=== PATIENT | female | born 1965 | race Caucasian/White ===

== ENCOUNTER 2016-06-24 01:38 | Emergency (ER) | payer MEDICAID, OTHER ==
[~2016-06-24] VITALS: Ht 154.9 cm; Wt 85.0 kg
[~2016-06-24 01:38] MED LIST: ATOR20TA15 PO; DEXE15CA PO; FURO20TA PO; HYDR25TA5 PO; METF500T4 PO; MOME17I EACH NARE
[2016-06-24 01:39] VITALS: BP 245/120; PULSE 112; RESP 24; TEMP 98.6; O2SAT 98
[2016-06-24 02:04] VITALS: BP 177/96; PULSE 99; RESP 18; O2SAT 100
[2016-06-24] MEDS ORDERED: BLOOD PRESSURE (02:04)
[2016-06-24] MEDS ORDERED: DEXE15CA PO (02:04)
[2016-06-24 02:11] VITALS: RESP 18; O2SAT 96
[2016-06-24] MEDS ORDERED: ONDANSETRON HCL 4 MG/2 ML VIAL IV ONE (02:15)
[2016-06-24] MEDS ORDERED: HYDROmorphone HCL PF 1 MG/ML VIAL IV PUSH ONE (02:15)
[2016-06-24 02:33] LABS: AUTOMATED NEUTROPHIL # 4.4 TH/MM3 (1.8-7.7); BASOPHIL % 0.5 % (0.0-2.0); EOSINOPHIL # 0.3 TH/MM3 (0-0.4); EOSINOPHIL % 3.1 % (0.0-4.0); HEMATOCRIT 38.7 % (35.0-46.0); HEMO FLAGS DIFF FINAL; LYMPHOCYTE # 3.6 TH/MM3 (1.0-4.8); MEAN CELL VOLUME 93.6 FL (80.0-100.0); MEAN CORPUSCULAR HEMOGLOBIN 32.9 PG (27.0-34.0); MEAN CORPUSCULAR HGB CONC 35.2 % (32.0-36.0); MONO % 4.9 % (0.0-8.0); NEUT % 50.5 % (16.0-70.0); PLATELET COUNT 289 TH/MM3 (150-450); RED BLOOD COUNT 4.13 MIL/MM3 (4.00-5.30); RED CELL DISTRIBUTION WIDTH 11.7 % (11.6-17.2); WHITE BLOOD COUNT 8.7 TH/MM3 (4.0-11.0)
[2016-06-24 02:37] LABS: BLOOD, URINE NEG (NEG); COMMENT (UR) CULT NOT INDICATED; CULTURE IF INDICATED CULT NOT INDICATED; GLUCOSE,URINE NEG (NEG); KETONE, URINE NEG (NEG); MUCUS URINE FEW /lpf (OCC); NITRITE,URINE NEG (NEG); SQUAMOUS EPITHELIAL CELL URINE 6 /hpf (0-5); URINE COLOR YELLOW (YELLW/STRAW)
[2016-06-24 02:44] LABS: APTT (PATIENT) 25.9 SEC (24.3-30.1); INTERNATIONAL NORMALIZED RATIO 0.9 RATIO; PROTHROMBIN TIME - PATIENT 9.7 SEC (9.8-11.6)
--- NOTE | 2016-06-24 02:47 | RADRPT ---
EXAM DATE/TIME: 06/24/2016 02:39 [facility] COMPARISON: No previous studies available for comparison. INDICATIONS : Right sided chest pain MEDICAL HISTORY : None. SURGICAL HISTORY : None. ENCOUNTER: Initial ACUITY: 1 day PAIN SCORE: 10/10 LOCATION: Right chest FINDINGS: A single view of the chest demonstrates the lungs to be symmetrically aerated without evidence of mas s, infiltrate or effusion. The cardiomediastinal contours are unremarkable. Osseous structures are intact. CONCLUSION: No acute disease. Santiago Jones MD on June 24, 2016 at 2:46 Board Certified Radiologist. This report was verified electronically.
[2016-06-24] MEDS ORDERED: PROCHLORPERAZINE INJ 10 MG/2 ML VIAL IVS ONE (03:15)
[2016-06-24 03:22] LABS: ALKALINE PHOSPHATASE 68 U/L (45-117); ALT (GPT) 30 U/L (10-53); ANION GAP 6 MEQ/L (5-15); AST (GOT) 26 U/L (15-37); BLOOD UREA NITROGEN 11 MG/DL (7-18); CHLORIDE 105 MEQ/L (98-107); CREATINE KINASE 202 U/L (26-192); GLOMERULAR FILTRATION RATE 92 ML/MIN (>89); MAGNESIUM 1.8 MG/DL (1.5-2.5); SODIUM (NA) 140 MEQ/L (136-145); TOTAL BILIRUBIN ADULT 0.2 MG/DL (0.2-1.0)
--- NOTE | 2016-06-24 03:22 | PD ---
HPI Chief Complaint: Abdominal Pain Time Seen by Provider: 02:05 Travel History International Travel<30 days: No Contact w/Intl Traveler<30days: No Traveled to known affect area: No History of Present Illness HPI The patient is a 51 year old female who presents to the [facility] emergency department with a history of abdominal pain in the left upper quadrant of the abdomen that radiates to the left flank that began a week ago. She reports that it has been constant although it has gradually worsened with time. She reports that she went to see her primary care physician about it and had laboratory studies done, however she has not heard the results. She was also instructed to have a CT scan of the abdomen and pelvis done as an outpatient tomorrow. The patient reports that the pain became too severe, that she came to the emergency department. She was told to take ibuprofen as needed for pain which she reports has not been helping. She reports that she's had nausea but no vomiting. She denies having any diarrhea. Her last bowel movement was 2 days ago. She reports that she normally moves her bowels daily. She denies ever having a colonoscopy previously. She denies ever having a pain like this previously. She denies any dysuria, hematuria, urinary urgency, or frequency. The patient denies any recent fevers, cough, congestion, neck pain, chest pain, shortness of breath, or neurologic symptoms. [facility] Past Medical History Narrative Medical The patient's past medical history is significant for attention deficit hyperactivity disorder, hypertension, tobacco abuse. ADHD: Yes Cardiovascular Problems: Yes (HTN) Hypertension: Yes Tetanus Vaccination: Unknown Influenza Vaccination: No ?: Not Tubal Ligation: Yes Past Surgical History Narrative Surgical The patient's past surgical history is significant for an appendectomy with subsequent wound infection treated with a wound VAC correctly 5-6 years ago, cholecystectomy, prior C-sections. Appendectomy: Yes Section: Yes (X2) Cholecystectomy: Yes Social History Alcohol Use: No Tobacco Use: Yes (1 PPD) Substance Use: No Allergies-Medications (Allergen,Severity, Reaction): Coded Allergies: Aspirin (Verified Allergy, Severe, ABDOMINAL PAIN, 06/24/16) Codeine (Verified Allergy, Severe, Rash, 06/24/16) E-Mycin (Verified Allergy, Severe, N/V, 06/24/16) Lortab (Verified Allergy, Severe, Itching, 06/24/16) Morphine (Verified Allergy, Severe, 06/24/16) Percocet (Verified Allergy, Intermediate, ITCHY SKIN AND VOMIT, 06/24/16) Sulfa (Verified Adverse Reaction, Severe, Fever, 06/24/16) Suprax (Verified Adverse Reaction, Severe, Rash, 06/24/16) Comments The patient reports that the Lortab allergy is not true. Reported Meds & Prescriptions Reported Meds & Active Scripts Active Zofran Odt (Ondansetron Odt) 4 Mg Tab 4 Mg SL Q6HR PRN Prevacid (Lansoprazole) 30 Mg Capdr 30 Mg PO DAILY Lortab (Hydrocodone-Acetaminophen) 5-325 Mg Tab 1 Tab PO Q6H PRN Reported [Blood Pressure ] Dexedrine (Dextroamphetamine Sulfate) 15 Mg Cap 15 Mg PO DAILY Furosemide 20 Mg Tab 20 Mg PO DAILY Review of Systems Except as stated in HPI: all other systems reviewed are Neg General / Constitutional: No: Fever Eyes: No: Visual changes HENT: No: Headaches Cardiovascular: No: Chest Pain or Discomfort Respiratory: No: Shortness of Breath Gastrointestinal: Positive: Nausea, Abdominal Pain, Constipation, Changes in Bowel Habits, No: Vomiting, Diarrhea, Hematemesis, Hematochezia, Indigestion, Loss of Appetite Genitourinary: No: Dysuria Musculoskeletal: No: Pain Skin: No Rash Neurologic: No: Weakness Psychiatric: No: Depression Endocrine: No: Polydipsia Hematologic/Lymphatic: No: Easy Bruising Physical Exam Narrative General: The patient is a well-developed well-nourished female in no acute distress. Head and Neck exam: Head is normocephalic atraumatic. Eyes: EOMI, pupils are equal round and reactive to light. Nose: Midline septum with pink mucous membranes Mouth: Dentition unremarkable. Moist mucus membranes. Posterior oropharynx is not erythematous. No tonsillar hypertrophy. Uvula midline. Airway patent. Neck: No palpable lymphadenopathy. No nuchal rigidity. No thyromegaly. Cardiovascular: Regular rate and rhythm without murmurs, gallops, or rubs. No pulse deficit to the extremities. Lungs: Clear to auscultation bilaterally. No wheezes, rhonchi, or rales. Abdomen: Soft, with tenderness on palpation in the left upper and left lower quadrant of the abdomen, no tenderness on palpation of the midepigastric area and right upper or lower quadrant. No guarding, rebound, or rigidity. Negative Roseau sign. No tenderness on palpation of McBurney's point. Normal bowel sounds are audible. Extremities: No clubbing, cyanosis, or edema. 2+ pulses in all 4 extremities. No calf tenderness on palpation. Back: No spinous process tenderness to palpation. Left-sided CVA tenderness on palpation. Neurologic Exam: Grossly nonfocal. Skin Exam: No rash noted. Intact skin that is warm and dry. Data Data Last Documented VS Vital Signs Date Time Temp Pulse Resp B/P Pulse Ox O2 Delivery O2 Flow Rate FiO2 06/24/16 02:11 18 96 Room Air 06/24/16 02:04 99 177/96 06/24/16 01:39 98.6 Orders Electrocardiogram (06/24/16 02:06) Complete Blood Count With Diff (06/24/16 02:06) Comprehensive Metabolic Panel (06/24/16 02:06) Creatine Kinase (Cpk) (06/24/16 02:06) Ckmb (Isoenzyme) Profile (06/24/16 02:06) Troponin I (06/24/16 02:06) B-Type Natriuretic Peptide (06/24/16 02:06) Prothrombin Time / Inr (Pt) (06/24/16 02:06) Act Partial Throm Time (Ptt) (06/24/16 02:06) C-Reactive Protein (Crp) (06/24/16 02:06) Urinalysis - C+S If Indicated (06/24/16 02:06) Magnesium (Mg) (06/24/16 02:06) Chest, Single Ap (06/24/16 02:06) Iv Access Insert/Monitor (06/24/16 02:06) Ecg Monitoring (06/24/16 02:06) Oximetry (06/24/16 02:06) Hydromorphone Pf Inj (Dilaudid Pf Inj) (06/24/16 02:15) Ondansetron Inj (Zofran Inj) (06/24/16 02:15) Ct Abd/Pel W Iv Contrast(Rout) (06/24/16 03:01) Prochlorperazine Inj (Compazine Inj) (06/24/16 03:15) CKMB (06/24/16 02:10) CKMB% (06/24/16 02:10) Iohexol 350 Inj (Omnipaque 350 Inj) (06/24/16 03:41) Lipase (06/24/16 04:20) Labs Laboratory Tests Test 06/24/16 06/24/16 02:10 02:15 White Blood Count 8.7 TH/MM3 Red Blood Count 4.13 MIL/MM3 Hemoglobin 13.6 GM/DL Hematocrit 38.7 % Mean Corpuscular Volume 93.6 FL Mean Corpuscular Hemoglobin 32.9 PG Mean Corpuscular Hemoglobin 35.2 % Concent Red Cell Distribution Width 11.7 % Platelet Count 289 TH/MM3 Mean Platelet Volume 7.7 FL Neutrophils (%) (Auto) 50.5 % Lymphocytes (%) (Auto) 41.0 % Monocytes (%) (Auto) 4.9 % Eosinophils (%) (Auto) 3.1 % Basophils (%) (Auto) 0.5 % Neutrophils # (Auto) 4.4 TH/MM3 Lymphocytes # (Auto) 3.6 TH/MM3 Monocytes # (Auto) 0.4 TH/MM3 Eosinophils # (Auto) 0.3 TH/MM3 Basophils # (Auto) 0.0 TH/MM3 CBC Comment DIFF FINAL Differential Comment Prothrombin Time 9.7 SEC Prothromb Time International 0.9 RATIO Ratio Activated Partial 25.9 SEC Thromboplast Time Sodium Level 140 MEQ/L Potassium Level 4.0 MEQ/L Chloride Level 105 MEQ/L Carbon Dioxide Level 29.0 MEQ/L Anion Gap 6 MEQ/L Blood Urea Nitrogen 11 MG/DL Creatinine 0.67 MG/DL Estimat Glomerular Filtration 92 ML/MIN Rate Random Glucose 124 MG/DL Calcium Level 9.0 MG/DL Magnesium Level 1.8 MG/DL Total Bilirubin 0.2 MG/DL Aspartate Amino Transf 26 U/L (AST/SGOT) Alanine Aminotransferase 30 U/L (ALT/SGPT) Alkaline Phosphatase 68 U/L Total Creatine Kinase 202 U/L Creatine Kinase MB 2.8 NG/ML Creatine Kinase MB % 1.4 % Troponin I LESS THAN 0.02 NG/ML C-Reactive Protein 0.58 MG/DL B-Type Natriuretic Peptide 17 PG/ML Total Protein 7.1 GM/DL Albumin 3.3 GM/DL Lipase 117 U/L Urine Color YELLOW Urine Turbidity HAZY Urine pH 6.0 Urine Specific [place] 1.029 Urine Protein TRACE mg/dL Urine Glucose (UA) NEG mg/dL Urine Ketones NEG mg/dL Urine Occult Blood NEG Urine Nitrite NEG Urine Bilirubin NEG Urine Urobilinogen LESS THAN 2.0 MG/DL Urine Leukocyte Esterase NEG Urine RBC 1 /hpf Urine WBC 1 /hpf Urine Squamous Epithelial 6 /hpf Cells Urine Mucus FEW /lpf Microscopic Urinalysis Comment CULT NOT INDICATED MDM Medical Decision Making Medical Screen Exam Complete: Yes Emergency Medical Condition: Yes Medical Record Reviewed: Yes Interpretation(s) Last Impressions Abdomen/Pelvis CT 06/24/16300 Signed Impressions: Service Date/Time: Friday, June 24, 2016 03:37 - CONCLUSION: Mild hepatic steatosis. No inflammatory changes are seen. Santiago Jones MD Chest X-Ray 06/24/16205 Signed Impressions: Service Date/Time: Friday, June 24, 2016 02:39 - CONCLUSION: No acute disease. Santiago Jones MD Differential Diagnosis Acute pancreatitis, versus peptic ulcer disease, versus diverticulitis, versus kidney stone, versus pyelonephritis, versus musculoskeletal strain Narrative Course During the course of the patients emergency department visit, the patients history, examination, and differential diagnosis were reviewed with the patient. The patient had IV access obtained and blood work sent for analysis. The patient was placed on a environmental monitoring technician with oximetry and blood pressure monitoring. An EKG was ordered. The patient's EKG shows a sinus rhythm of 81, right bundle branch block which the patient reports having a history of, T waves inverted in V1 and V2, no acute ST segment elevation. A CT scan of the abdomen and pelvis was ordered. The patient was provided hydromorphone 0.5 mg IV, normal saline IV fluids, Zofran 4 mg IV. The patient continued to have nausea and was given Compazine 5 mg IV. The patients laboratory studies were reviewed and remarkable for a CBC that is within normal limits, CMP is remarkable for a glucose of 124, CPK 202, MB percent 1.4, troponin I less than 0.02, C-reactive protein 0.58, BNP is 17 albumin 3.3, PT PTT unremarkable. Urinalysis shows hazy urine, otherwise no acute abnormality. Lipase within normal limits. Radiology studies were reviewed and remarkable for a Chest x-ray shows no acute abnormality. CT scan of the abdomen and pelvis shows mild hepatic steatosis, no inflammatory changes are seen. The patient initially arrived with an elevated blood pressure, however after her pain level was improved the patient's blood pressure went down to a systolic of 117. The patient is instructed to continue to follow-up with her primary care physician and consideration for referral to a GI specialist for colonoscopy and endoscopy. The patient was discharged home with a prescription for Zofran, Prevacid, Lortab. The patient is resting comfortably and feels better, is alert and in no distress. The patients results and examination findings were discussed with the patient. The repeat examination is unremarkable and benign. The history, exam, diagnostic testing, and current condition do not suggest any significant pathology to warrant further testing, continued ED treatment, admission, or surgical evaluation at this point. The vital signs have been stable. The patient does not have uncontrollable pain, intractable vomiting, or other significant symptoms. The patient's condition is stable and appropriate for discharge. The patient will pursue further outpatient evaluation with a primary care physician or other designated or consulting physician as indicated in the discharge instructions. The patient expressed understanding and was agreeable with this plan. Diagnosis Primary Impression: Abdominal pain Qualified Code: R10.32 - Left lower quadrant pain Additional Impression: Nausea Referrals: Primary Care Physician Patient Instructions: Abdominal Pain (ED), General Instructions Med/Other Pt SpecificInfo: Prescription(s) given Scripts Ondansetron Odt (Zofran Odt)4 Mg Tab4 Mg SL Q6HR PRN (Nausea/Vomiting) #7 TAB Ref 0 Prov:Anna Byrd MD 06/24/16 Lansoprazole (Prevacid)30 Mg Capdr30 Mg PO DAILY #14 CAP Ref 0 Prov:Anna Byrd MD 06/24/16 Hydrocodone-Acetaminophen (Lortab)5-325 Mg Tab1 Tab PO Q6H PRN (PAIN) #12 TAB Ref 0 Prov:Anna Byrd MD 06/24/16 Disposition: 01 DISCHARGE HOME Condition: Stable Anna Byrd MD Jun 24, 2016 03:22
[2016-06-24 03:40] LABS: CKMB 2.8 NG/ML (0.5-3.6)
[2016-06-24] MEDS ORDERED: IOHEXOL 350 MG/ML 10 ML VIAL (for RAD DIAG) IV ONE (03:41)
[2016-06-24 03:45] VITALS: BP 126/60; PULSE 96; RESP 18; O2SAT 94
--- NOTE | 2016-06-24 04:06 | RADRPT ---
EXAM DATE/TIME: 06/24/2016 03:37 [facility] COMPARISON: No previous studies available for comparison. INDICATIONS : Left sided abdominal pain, evaluate for diverticulitis. IV CONTRAST: 94 cc Omnipaque 350 (iohexol) IV ORAL CONTRAST: No oral contrast ingested. RADIATION DOSE: 14.79 CTDIvol (mGy) MEDICAL HISTORY : Cardiovascular disease. Hypertension. SURGICAL HISTORY : Appendectomy. Tubal ligation. section. ENCOUNTER: Initial ACUITY: 1 day PAIN SCALE: 10/10 LOCATION: Left abdomen TECHNIQUE: Volumetric scanning of the abdomen and pelvis was performed. Using automated exposure control and ad justment of the mA and/or kV according to patient size, radiation dose was kept as low as reasonably achievable to obtain optimal diagnostic quality images. FINDINGS: Mild hepatic steatosis. Common bile that measures 1.4 cm in AP dimension possibly related to a reserv oir effect. Spleen, pancreas, adrenal glands, bilateral kidneys are normal in appearance. Uterus and adnexal regions are unremarkable. Tiny fat containing umbilical hernia. Lung bases are clear. Osseous structures are intact. No free fluid or free air. CONCLUSION: Mild hepatic steatosis. No inflammatory changes are seen. Santiago Jones MD on June 24, 2016 at 4:00 Board Certified Radiologist. This report was verified electronically.
[2016-06-24] MEDS ORDERED: PREV30CA11 PO (04:23)
[2016-06-24] MEDS ORDERED: ZOFR4TAB3 SL (04:23)
[2016-06-24] MEDS ORDERED: HYDR-3533 PO (04:23)
[2016-06-24 05:17] VITALS: BP 117/56
--- NOTE | 2016-06-24 09:21 | EKG ---
Date Performed: 06/24/2016 Time Performed: 02:51:46 PTAGE: 51 years EKG: Sinus rhythm RIGHT BUNDLE BRANCH BLOCK ABNORMAL ECG PREVIOUS TRACING : 05/07/2015 12.11 DOCTOR: Roel Covarrubias Interpretating Date/Time 06/24/2016 09:19:02
[2016-06-25] MEDS ORDERED: HYDR-3583 PO (15:01)
[2016-06-25] MEDS ORDERED: ONDA4TAB7 SL (15:01)
[2016-06-25] MEDS ORDERED: OMEP20CA2 PO (15:01)
[2016-06-25] MEDS ORDERED: [UNRECOGNIZED DRUG - CODE] PO (15:04)
[2016-06-25] MEDS ORDERED: PERI8.6T PO (15:04)
[2016-06-25] MEDS ORDERED: ATEN25TA PO (15:22)
[2016-06-25] MEDS ORDERED: QUIN1TAB11 PO (15:22)
[2016-06-26] MEDS ORDERED: COLA100C3 PO (09:54)
[2016-06-26] MEDS ORDERED: MIRA33504 PO (10:31)
[2016-06-26] MEDS ORDERED: TRIA40P IM (14:53)
[2016-06-29] MEDS ORDERED: KETO60IN6 IM (13:37)
[2016-06-30] MEDS ORDERED: FURO20TA PO (13:51)
[2016-07-03] MEDS ORDERED: PANT20TA2 PO (10:55)
[2016-07-03] MEDS ORDERED: KETO60IN6 IM (10:55)
[2016-07-07] MEDS ORDERED: QUIN1TAB11 PO (15:17)
[2016-07-07] MEDS ORDERED: [UNRECOGNIZED DRUG - CODE] IV (15:37)
[2016-07-07] MEDS ORDERED: KETO60IN6 IM (15:46)
[2016-08-04] MEDS ORDERED: AZEL0.055 EACH NARE (16:08)
[2016-08-04] MEDS ORDERED: BACTOIN EACH NARE (16:08)
[2016-08-04] MEDS ORDERED: KETO60IN6 IM (16:08)
[2016-08-04] MEDS ORDERED: CLIN1CAP6 PO (16:08)
[2016-08-06] MEDS ORDERED: MOME17I EACH NARE (13:48)
[2016-08-12] MEDS ORDERED: FLUT50SP EACH NARE (16:51)
[2016-08-19] MEDS ORDERED: QUIN1TAB11 PO (08:35)
[2016-09-03] MEDS ORDERED: FLUT50SP EACH NARE (09:32)
== END 2016-06-24 05:18 | disposition home or self-care (01) ==
LOC: NEPE 01:38
DX: R10.32 Left lower quadrant pain (principal); R10.12 Left upper quadrant pain; R11.0 Nausea; R94.31 Abnormal electrocardiogram [ECG] [EKG]; I10 Essential (primary) hypertension; F17.200 Nicotine dependence, unspecified, uncomplicated; Z86.59 Personal history of other mental and behavioral disorders
CPT/HCPCS: 71010; 74177; 80053; 81001; 82550; 82552; 83690; 83735; 83880; 84484; 85025; 85610; 85730; 86140; 93005; 96374; 96375; 99284; J0780; J1170; J2405; Q9967

== ENCOUNTER 2017-01-21 23:05 | Emergency (ER) | payer MEDICAID ==
[~2017-01-21] VITALS: Ht 154.9 cm; Wt 83.0 kg
[~2017-01-21 23:05] MED LIST changes: +ATEN25TA PO; -ATOR20TA15 PO; +BLOOD PRESSURE; +FLUT50SP EACH NARE; -HYDR25TA5 PO; +IBUP800T23 PO; +KETO10 PO; -METF500T4 PO; -MOME17I EACH NARE; +OMEP20CA2 PO; +PANT20TA2 PO
[2017-01-21 23:07] VITALS: BP_SYST 148; PULSE 100; RESP 16; TEMP 98.8; O2SAT 96
[2017-01-22 00:09] VITALS: BP 145/92; PULSE 83; RESP 20; O2SAT 98
--- NOTE | 2017-01-22 00:33 | PD ---
HPI Chief Complaint: Respiratory Symptoms Time Seen by Provider: 00:32 Travel History International Travel<30 days: No Contact w/Intl Traveler<30days: No Traveled to known affect area: No History of Present Illness HPI Patient 51-year-old female presents emergency department for evaluation of cough and congestion. She went to an urgent care center a few days ago was prescribed Augmentin but states this doesn't work for and she usually needs amoxicillin. Patient states she has a history of recurrent bronchitis and is a smoker. She states that there is a leak in her roof and there is mold in her house. Denies any fever denies any chest pain, endorse a mild baseline shortness of breath. Is not on any oxygen at home. Duration is a week and a half. She's finished her antibiotics. PFSH Past Medical History ADHD: Yes Cardiovascular Problems: Yes (HTN) Diminished Hearing: No Hypertension: Yes Tetanus Vaccination: Unknown ?: Not Tubal Ligation: Yes Past Surgical History Appendectomy: Yes Section: Yes (X2) Cholecystectomy: Yes Social History Alcohol Use: No Tobacco Use: Yes (1 PPD) Substance Use: No Allergies-Medications (Allergen,Severity, Reaction): Coded Allergies: aspirin (Unverified Allergy, Severe, ABDOMINAL PAIN, 11/26/16) codeine (Unverified Allergy, Severe, Rash, 11/26/16) erythromycin base (Unverified Allergy, Severe, N/V, 11/26/16) hydrocodone (Unverified Allergy, Severe, Itching, 11/26/16) morphine (Unverified Allergy, Severe, 11/26/16) acetaminophen (Unverified Allergy, Intermediate, ITCHY SKIN AND VOMIT, ) oxycodone (Unverified Allergy, Intermediate, ITCHY SKIN AND VOMIT, 11/26/16 ) Sulfa (Sulfonamide Antibiotics) (Unverified Adverse Reaction, Severe, Fever, 11/26/16) cefixime (Unverified Adverse Reaction, Severe, Rash, 11/26/16) Reported Meds & Prescriptions Reported Meds & Active Scripts Active Proair Hfa 8.5 GM Inh (Albuterol Sulfate) 90 Mcg/Act Aer 2 Puff INH Q6H PRN 108 mcg/actuation Prednisone 20 Mg Tab 40 Mg PO DAILY 5 Days Ibuprofen 800 Mg Tab 800 Mg PO Q8H PRN Fluticasone Nasal [place] 50 Mcg/Act Naspr 50 Mcg EACH NARE BID 50 mcg/spray Furosemide 20 Mg Tab 20 Mg PO DAILY Ketorolac (Ketorolac Tromethamine) 10 Mg Tab 10 Mg PO Q6HR PRN Pantoprazole (Pantoprazole Sodium) 20 Mg Tab 20 Mg PO DAILY Atenolol 25 Mg Tab 25 Mg PO DAILY Omeprazole 20 Mg Cap 20 Mg PO DAILY Reported [Blood Pressure ] Dexedrine (Dextroamphetamine Sulfate) 15 Mg Cap 15 Mg PO DAILY Review of Systems Except as stated in HPI: all other systems reviewed are Neg Physical Exam Narrative GENERAL: Well-nourished, well-developed patient. In no obvious distress, sleeping soundly in a stretcher. SKIN: Focused skin assessment warm/dry. HEAD: Normocephalic. Atraumatic EYES: No scleral icterus. No injection or drainage. NECK: Supple, trachea midline. No JVD or lymphadenopathy. CARDIOVASCULAR: Regular rate and rhythm without murmurs, gallops, or rubs. RESPIRATORY: Breath sounds equal bilaterally. No accessory muscle use. No wheezes rales or rhonchi, normal work of breathing. GASTROINTESTINAL: Abdomen soft, non-tender, nondistended. MUSCULOSKELETAL: No cyanosis, or edema. BACK: Nontender without obvious deformity. No CVA tenderness. Data Data Last Documented VS Vital Signs Date Time Temp Pulse Resp B/P (MAP) Pulse Ox O2 Delivery O2 Flow Rate FiO2 01/22/17 02:19 01/22/17 00:10 20 98 Room Air 01/22/17 00:09 83 01/21/17 23:07 98.8 Orders Orders Chest, Pa & Lat (01/22/17 ) Albuterol-Ipratropium Neb (Duoneb Neb) (01/22/17 00:45) Ed Discharge Order (01/22/17 01:43) MDM Medical Decision Making Medical Screen Exam Complete: Yes Emergency Medical Condition: Yes Differential Diagnosis Bronchitis, pneumonia, asthma, COPD, chronic bronchitis. Narrative Course Patient roomed to emergency department, she was given duo neb, will be discharged on prednisone if chest x-ray negative. Discussed need follow-up her primary care physician in smoking cessation. Last 24 hours Impressions Chest X-Ray 01/22/17 0000 Signed Impressions: Service Date/Time: Wednesday, January 22, 2017 00:50 - CONCLUSION: No acute disease. Davy Mittal MD Diagnosis Primary Impression: Acute bronchitis Qualified Codes: J20.9 - Acute bronchitis, unspecified Med/Other Pt SpecificInfo: Prescription(s) given Scripts Albuterol 8.5 GM Inh (Proair Hfa 8.5 GM Inh) 90 Mcg/Act Aer 2 PUFF INH Q6H Y for SHORTNESS OF BREATH, #1 INHALER 1 Refill 108 mcg/actuation Prov: Blade Antony MD 01/22/17 Prednisone (Prednisone) 20 Mg Tab 40 MG PO DAILY for 5 Days, #10 TAB 0 Refills Prov: Blade Antony MD 01/22/17 Disposition: 01 DISCHARGE HOME Condition: Stable Blade Antony MD Jan 22, 2017 00:33
[2017-01-22] MEDS ORDERED: RESP: ALBUTEROL 2.5 MG/IPRATROPIUM 0.5 MG NEB (SCH) NEB ONE (00:45)
--- NOTE | 2017-01-22 01:08 | RADRPT ---
EXAM DATE/TIME: 01/22/2017 00:50 [facility] COMPARISON: No previous studies available for comparison. INDICATIONS : Shortness of breath MEDICAL HISTORY : Cardiovascular disease. Hypertension SURGICAL HISTORY : Appendectomy. Tubal ligation. section. ENCOUNTER: Initial ACUITY: 1 day PAIN SCORE: 5/10 LOCATION: Bilateral chest FINDINGS: PA and lateral views of the chest demonstrate the lungs to be symmetrically aerated without evidence of mass, infiltrate or effusion. The cardiomediastinal contours are unremarkable. Osseous structure s are intact. CONCLUSION: No acute disease. Davy Mittal MD on January 22, 2017 at 1:07 Board Certified Radiologist. This report was verified electronically.
[2017-01-22] MEDS ORDERED: ALBUAER3 INH (01:42)
[2017-01-22] MEDS ORDERED: PRED20 PO (01:42)
[2017-01-30] MEDS ORDERED: FLUT50SP EACH NARE (13:31)
[2017-02-04] MEDS ORDERED: MEDR4PAK PO (14:18)
== END 2017-01-22 02:15 | disposition home or self-care (01) ==
LOC: NEPE 23:05
DX: J20.9 Acute bronchitis, unspecified (principal); F17.200 Nicotine dependence, unspecified, uncomplicated; I10 Essential (primary) hypertension
CPT/HCPCS: 71020; 94664; 99284

== ENCOUNTER 2017-05-03 16:38 | Emergency (ER) | payer MEDICAID ==
[~2017-05-03] VITALS: Ht 156.2 cm; Wt 86.4 kg
[~2017-05-03 16:38] MED LIST changes: +ALBUAER3 INH; +AZEL0.055 EACH NARE; +IBUP1TAB7 PO; -IBUP800T23 PO; +MEDR4PAK PO; +PRED20 PO; +PRED50 PO; +TRIA.1%T TOPICAL; +VIST25CA PO; +ZAFI1TAB PO
[2017-05-03 16:40] VITALS: BP 132/74; PULSE 86; RESP 20; TEMP 98.5; O2SAT 100
[2017-05-03] MEDS ORDERED: MEDR4PAK PO (18:00)
[2017-05-03] MEDS ORDERED: CYCL10TA PO (18:00)
--- NOTE | 2017-05-03 18:00 | PD ---
HPI Chief Complaint: Back/ Neck Pain or Injury Time Seen by Provider: 17:33 Travel History International Travel<30 days: No Contact w/Intl Traveler<30days: No Traveled to known affect area: No History of Present Illness HPI This is a 51-year-old female here with low back pain radiating down into the right leg 3 days. Patient reports history of sciatica with similar pain in the past. She denies injury or trauma. No fever, incontinence, saddle anesthesia, paresthesia or weakness of the extremity. Pain is worse with movement and relieved with rest. Symptom severity is moderate. PFSH Past Medical History ADHD: Yes Cardiovascular Problems: Yes (HTN) Diminished Hearing: No Hypertension: Yes Tubal Ligation: Yes Past Surgical History Appendectomy: Yes Section: Yes (X2) Cholecystectomy: Yes Social History Alcohol Use: No Tobacco Use: Yes (1 PPD) Substance Use: No Allergies-Medications (Allergen,Severity, Reaction): Coded Allergies: aspirin (Unverified Allergy, Severe, ABDOMINAL PAIN, 03/01/17) codeine (Unverified Allergy, Severe, Rash, 03/01/17) erythromycin base (Unverified Allergy, Severe, N/V, 03/01/17) hydrocodone (Unverified Allergy, Severe, Itching, 03/01/17) morphine (Unverified Allergy, Severe, 03/01/17) acetaminophen (Unverified Allergy, Intermediate, ITCHY SKIN AND VOMIT, ) oxycodone (Unverified Allergy, Intermediate, ITCHY SKIN AND VOMIT, ) Sulfa (Sulfonamide Antibiotics) (Unverified Adverse Reaction, Severe, Fever, 03/01/17) cefixime (Unverified Adverse Reaction, Severe, Rash, 03/01/17) Reported Meds & Prescriptions Reported Meds & Active Scripts Active Flexeril (Cyclobenzaprine HCl) 10 Mg Tab 10 Mg PO TID Medrol Dosepak (Methylprednisolone) 4 Mg Dspk 4 Mg PO DIRECTED Per Pharmacist direction Proair Hfa 8.5 GM Inh (Albuterol Sulfate) 90 Mcg/Act Aer 2 Puff INH Q6H PRN 108 mcg/actuation Atenolol 25 Mg Tab 25 Mg PO DAILY Vistaril (Hydroxyzine Pamoate) 25 Mg Cap 25 Mg PO TID PRN Zafirlukast 10 Mg Tab 10 Mg PO BIDAC Azelastine Nasal [place] (Azelastine HCl) 0.15% [place] 2 [place] EACH NARE BID To each nostril. Fluticasone Nasal [place] 50 Mcg/Act Naspr 100 Mcg EACH NARE BID 50 mcg/spray Ibuprofen 800 Mg Tab 800 Mg PO Q8H PRN Furosemide 20 Mg Tab 20 Mg PO DAILY Omeprazole 20 Mg Cap 20 Mg PO DAILY Reported Dexedrine (Dextroamphetamine Sulfate) 15 Mg Cap 15 Mg PO DAILY Review of Systems Except as stated in HPI: all other systems reviewed are Neg Physical Exam Narrative GENERAL: Alert and well-appearing 51-year-old female SKIN: Warm and dry. No rash HEAD: Normocephalic. EYES: No injection or drainage. NECK: No JVD or lymphadenopathy. CARDIOVASCULAR: Regular rate and rhythm RESPIRATORY: Breath sounds equal bilaterally. No accessory muscle use. GASTROINTESTINAL: Abdomen soft, non-tender, nondistended. MUSCULOSKELETAL: No cyanosis, or edema. No muscle strength and sensation in lower extremity is. 2+ DTRs. She is able dorsiflex and plantarflex great toe. Ambulating without difficulty BACK: Mild tenderness over the right sacroiliac joint. No midline spine tenderness. Without obvious deformity. No CVA tenderness. Data Data Last Documented VS Vital Signs Date Time Temp Pulse Resp B/P (MAP) Pulse Ox O2 Delivery O2 Flow Rate FiO2 05/03/17 16:40 98.5 86 20 132/74 (93) 100 Room Air Orders Orders Ketorolac Inj (Toradol Inj) (05/03/17 18:15) Ed Discharge Order (05/03/17 18:01) [facility] Medical Decision Making Medical Screen Exam Complete: Yes Emergency Medical Condition: Yes Differential Diagnosis Sciatica, lumbar strain, SI joint pain, Narrative Course This is a 51-year-old female here with right-sided sciatica pain. She has a normal neurologic exam. She reports symptom improvement in the past steroids and a shot of Toradol. Diagnosis Primary Impression: Sciatica Qualified Codes: M54.31 - Sciatica, right side Referrals: Primary Care Physician Additional Instructions: Mentations as prescribed. Follow-up with her primary doctor. Scripts Methocarbamol (Robaxin) 500 Mg Tab 500 MG PO TID for Muscle Spasm, #12 TAB 0 Refills Prov: Kimberley Juares [employer] 05/03/17 Methylprednisolone Dosepak (Medrol Dosepak) 4 Mg Dspk 4 MG PO DIRECTED, #1 DSPK 0 Refills Per Pharmacist direction Prov: Kimberley Juares 05/03/17 Disposition: 01 DISCHARGE HOME Condition: Stable Kimberley Juares May 03, 2017 18:00
[2017-05-03] MEDS ORDERED: KETOROLAC TROMETHAMINE 60 MG/2 ML (IM) VIAL IM ONE (18:15)
[2017-05-03] MEDS ORDERED: ROBA500T PO (19:08)
== END 2017-05-03 19:33 | disposition home or self-care (01) ==
LOC: NEPK 16:38
DX: M54.31 Sciatica, right side (principal); F90.9 Attention-deficit hyperactivity disorder, unspecified type; I10 Essential (primary) hypertension; F17.210 Nicotine dependence, cigarettes, uncomplicated
CPT/HCPCS: 96372; 99284; J1885

== ENCOUNTER 2017-05-11 13:55 | Emergency (ER) | payer MEDICAID ==
[~2017-05-11 13:55] MED LIST changes: -BLOOD PRESSURE; -KETO10 PO; -PANT20TA2 PO; -PRED20 PO; -PRED50 PO; +ROBA500T PO; -TRIA.1%T TOPICAL
[2017-05-11 13:57] VITALS: BP 174/85; PULSE 100; RESP 22; TEMP 99.2; O2SAT 98
[2017-05-11] MEDS ORDERED: methylPREDNISolone SOD SUCC 125 MG/2 ML VIAL IM ONE (16:45)
[2017-05-11] MEDS ORDERED: KETOROLAC TROMETHAMINE 60 MG/2 ML (IM) VIAL IM ONE (16:45)
[2017-05-11] MEDS ORDERED: PRED20 PO (17:06)
[2017-05-11] MEDS ORDERED: KETO10 PO (17:06)
--- NOTE | 2017-05-11 17:11 | PD ---
HPI Chief Complaint: Back/ Neck Pain or Injury Time Seen by Provider: 16:31 Travel History International Travel<30 days: No Contact w/Intl Traveler<30days: No Traveled to known affect area: No History of Present Illness HPI 51-year-old female that presents to the ED for evaluation of lower back pain that radiates to both lower legs. Per patient she's had this on and off for some time. Per patient she was diagnosed with degenerative disc disease by her doctor and has been getting cortisone shots as well as Toradol with some relief. She was seen here about a week ago and was given Toradol but she states that Toradol does work for her but doesn't last long and she is here hoping to get a cortisone shot. She denies any chest pain or shortness of breath. No new injuries but states that she's been painting her house and likely aggravating her symptoms. She denies any numbness, tingling, weakness. No urinary or bowel movement issues. No sign of seizure-like symptoms. She followed for her doctor and try to get a appointment today to get a shot with him but they were both today so she decided to come here because of the pain. Per patient pain is 8 out of 10. She denies any falls or injuries. This is in ongoing for the past week and worsening today. She specifically asked for narcotic medications and states that she does not like them and does not want them. PFSH Past Medical History ADHD: Yes Arthritis: Yes Cardiovascular Problems: Yes (HTN) Diminished Hearing: No Hypertension: Yes Immunizations Current: Yes ?: Not Tubal Ligation: Yes Past Surgical History Appendectomy: Yes Section: Yes (X3) Cholecystectomy: Yes Social History Alcohol Use: No Tobacco Use: Yes (1 PPD) Substance Use: No Allergies-Medications (Allergen,Severity, Reaction): Coded Allergies: aspirin (Unverified Allergy, Severe, ABDOMINAL PAIN, 05/11/17) codeine (Unverified Allergy, Severe, Rash, 05/11/17) erythromycin base (Unverified Allergy, Severe, N/V, 05/11/17) hydrocodone (Unverified Allergy, Severe, Itching, 05/11/17) morphine (Unverified Allergy, Severe, 05/11/17) acetaminophen (Unverified Allergy, Intermediate, ITCHY SKIN AND VOMIT, 05/11) oxycodone (Unverified Allergy, Intermediate, ITCHY SKIN AND VOMIT, 05/11/17) Sulfa (Sulfonamide Antibiotics) (Unverified Adverse Reaction, Severe, Fever, 05/11/17) cefixime (Unverified Adverse Reaction, Severe, Rash, 05/11/17) Reported Meds & Prescriptions Reported Meds & Active Scripts Active Atenolol 25 Mg Tab 25 Mg PO DAILY Azelastine Nasal [place] (Azelastine HCl) 0.15% [place] 2 [place] EACH NARE BID To each nostril. Furosemide 20 Mg Tab 20 Mg PO DAILY Reported Dexedrine (Dextroamphetamine Sulfate) 15 Mg Cap 15 Mg PO DAILY Review of Systems Except as stated in HPI: all other systems reviewed are Neg Physical Exam Narrative GENERAL: SKIN: Warm and dry. HEAD: Atraumatic. Normocephalic. EYES: Pupils equal and round. No scleral icterus. No injection or drainage. ENT: No nasal bleeding or discharge. Mucous membranes pink and moist. NECK: Trachea midline. No JVD. CARDIOVASCULAR: Regular rate and rhythm. RESPIRATORY: No accessory muscle use. Clear to auscultation. Breath sounds equal bilaterally. GASTROINTESTINAL: Abdomen soft, non-tender, nondistended. Hepatic and splenic margins not palpable. MUSCULOSKELETAL: Extremities without clubbing, cyanosis, or edema. No obvious deformities. No lumbar, thoracic, cervical spine tenderness to palpation. Full range of motion of the upper and lower extremities bilaterally. 2+ pulses bilaterally. Some pain to producible with touch around the musculature of the lumbar musculature. Otherwise negative. No obvious deformity noted. NEUROLOGICAL: Awake and alert. No obvious cranial nerve deficits. Motor grossly within normal limits. Five out of 5 muscle strength in the arms and legs. Normal speech. PSYCHIATRIC: Appropriate mood and affect; insight and judgment normal. Data Data Last Documented VS Vital Signs Date Time Temp Pulse Resp B/P (MAP) Pulse Ox O2 Delivery O2 Flow Rate FiO2 05/11/17 13:57 99.2 100 22 174/85 (114) 98 Room Air Orders Orders Methylprednisolone So Succ Inj (Solumedr (05/11/17 16:45) Ketorolac Inj (Toradol Inj) (05/11/17 16:45) Ed Discharge Order (05/11/17 17:05) MDM Medical Decision Making Medical Screen Exam Complete: Yes Emergency Medical Condition: Yes Medical Record Reviewed: Yes Differential Diagnosis Back pain versus chronic back pain versus sciatica versus chronic low back pain versus normal exam Narrative Course 51-year-old female that presents to the ED for evaluation of lower back pain. Patient was properly examined and was found to have signs and symptoms consistent appears to be acute on chronic low back pain. No sign of acute medical distress. Patient has good pulses and is neurovascularly intact. No sign of have equinus syndrome or neurological deficit. Patient has been here before for similar. She really has a history of similar and states that cortisone help with her symptoms. At this time I think is reasonable to start her on a shot of Solu-Medrol and high dose of prednisone. Patient was given Toradol as well to give her relief quicker. Patient agrees with this plan. Patient was given prescription for this medications. Patient was told that if anything worsens she is to come back. I strongly encouraged her to avoid any strenuous activity including the painting that she is doing at her house until she is better as this will likely aggravate her symptoms. She agrees and understands plan. Ice or warm compresses. Continue medications given by her doctor. Follow up with PCP. See ED worsening symptoms. Diagnosis Primary Impression: Chronic low back pain Qualified Codes: M54.42 - Lumbago with sciatica, left side; M54.41 - Lumbago with sciatica, right side; G89.29 - Other chronic pain Patient Instructions: General Instructions Additional Instructions: Take medications as prescribed. Follow-up with your PCP. See ED worsening symptoms. Ice or warm compresses. Please avoid heavy lifting or bending for the next couple days until better. Med/Other Pt SpecificInfo: Prescription(s) given Scripts Prednisone (Prednisone) 20 Mg Tab 20 MG PO BID for 5 Days, #10 TAB 0 Refills Prov: Donna Low DO 05/11/17 Ketorolac (Ketorolac) 10 Mg Tab 10 MG PO Q6HR Y for PAIN, #20 TAB 0 Refills Prov: Donna Low DO 05/11/17 Disposition: 01 DISCHARGE HOME Condition: Stable Brenden Hyde May 11, 2017 17:11
== END 2017-05-11 17:25 | disposition home or self-care (01) ==
LOC: NEPK 13:55
DX: M54.41 Lumbago with sciatica, right side (principal); M54.42 Lumbago with sciatica, left side; G89.29 Other chronic pain; I10 Essential (primary) hypertension; F17.200 Nicotine dependence, unspecified, uncomplicated
CPT/HCPCS: 96372; 99283; J1885; J2930

== ENCOUNTER 2017-06-11 20:23 | Emergency (ER) | payer MEDICAID ==
[~2017-06-11 20:23] MED LIST changes: -ALBUAER3 INH; -FLUT50SP EACH NARE; -IBUP1TAB7 PO; +KETO10 PO; -MEDR4PAK PO; -OMEP20CA2 PO; +PRED20 PO; -ROBA500T PO; -VIST25CA PO; -ZAFI1TAB PO
[2017-06-11 22:14] VITALS: BP 117/69; PULSE 77; RESP 16; TEMP 98.3; O2SAT 97
[2017-06-11] MEDS ORDERED: DEXT15CA5 PO (23:50)
[2017-06-11] MEDS ORDERED: DICL75TA PO (23:52)
--- NOTE | 2017-06-11 23:52 | PD ---
HPI Chief Complaint: Pain: Acute or Chronic Time Seen by Provider: 23:44 Travel History International Travel<30 days: No Contact w/Intl Traveler<30days: No Traveled to known affect area: No History of Present Illness HPI 52-year-old female presents for evaluation of right-sided lower back pain that radiates on the right leg. This is a chronic issue that has been ongoing for many years. She is requesting a Toradol injection which has helped in the past. The pain is a sharp shooting pain which is worse with movement. She denies any acute injury. Denies bowel or bladder incontinence, saddle anesthesia, abdominal pain, focal weakness. No other complaints. PFSH Past Medical History ADHD: Yes Arthritis: Yes Cardiovascular Problems: Yes (HTN) Diminished Hearing: No Hypertension: Yes Immunizations Current: Yes ?: Not Tubal Ligation: Yes Past Surgical History Appendectomy: Yes Section: Yes (X3) Cholecystectomy: Yes Social History Alcohol Use: No Tobacco Use: Yes (1 PPD) Substance Use: No Allergies-Medications (Allergen,Severity, Reaction): Coded Allergies: aspirin (Unverified Allergy, Severe, ABDOMINAL PAIN, 06/11/17) codeine (Unverified Allergy, Severe, Rash, 06/11/17) erythromycin base (Unverified Allergy, Severe, N/V, 06/11/17) hydrocodone (Unverified Allergy, Severe, Itching, 06/11/17) morphine (Unverified Allergy, Severe, 06/11/17) acetaminophen (Unverified Allergy, Intermediate, ITCHY SKIN AND VOMIT, 06/11) oxycodone (Unverified Allergy, Intermediate, ITCHY SKIN AND VOMIT, 06/11/17) Sulfa (Sulfonamide Antibiotics) (Unverified Adverse Reaction, Severe, Fever, 06/11/17) cefixime (Unverified Adverse Reaction, Severe, Rash, 06/11/17) Reported Meds & Prescriptions Reported Meds & Active Scripts Active Diclofenac Sodium DR (Diclofenac Sodium) 75 Mg Tabdr 75 Mg PO BID 7 Days Atenolol 25 Mg Tab 25 Mg PO DAILY Reported Dextroamphetamine (Dextroamphetamine Sulfate) 15 Mg Cap 15 Mg PO DAILY Review of Systems Except as stated in HPI: all other systems reviewed are Neg Physical Exam Narrative GENERAL: Well-developed well-nourished female no acute distress SKIN: Warm and dry. HEAD: Atraumatic. Normocephalic. EYES: Pupils equal and round. No scleral icterus. No injection or drainage. ENT: No nasal bleeding or discharge. Mucous membranes pink and moist. NECK: Trachea midline. No JVD. CARDIOVASCULAR: Regular rate and rhythm. No murmur appreciated. RESPIRATORY: No accessory muscle use. Clear to auscultation. Breath sounds equal bilaterally. GASTROINTESTINAL: Abdomen soft, non-tender, nondistended. Hepatic and splenic margins not palpable. MUSCULOSKELETAL: No obvious deformities. No clubbing. No cyanosis. No edema. Some tenderness to palpation to the right lumbosacral region. 5 out of 5 muscle strength in lower extremities. NEUROLOGICAL: Awake and alert. No obvious cranial nerve deficits. Motor grossly within normal limits. Normal speech. PSYCHIATRIC: Appropriate mood and affect; insight and judgment normal. Data Data Last Documented VS Vital Signs Date Time Temp Pulse Resp B/P (MAP) Pulse Ox O2 Delivery O2 Flow Rate FiO2 06/11/17 22:14 98.3 77 16 117/69 (85) 97 Orders Orders Ketorolac Inj (Toradol Inj) (06/12/17 00:00) [facility] Medical Decision Making Medical Screen Exam Complete: Yes Emergency Medical Condition: Yes Medical Record Reviewed: Yes Differential Diagnosis Herniated mucous pulposis, piriformis syndrome, muscle spasm, spinal stenosis, compression fracture Narrative Course The patient will be given an injection of Toradol here and discharged with a short course of diclofenac. Diagnosis Primary Impression: Lumbosacral radiculopathy Additional Instructions: Medication as needed. Take with meals. Follow-up with primary care physician. Med/Other Pt SpecificInfo: Prescription(s) given Scripts Diclofenac Sodium DR (Diclofenac Sodium DR) 75 Mg Tabdr 75 MG PO BID for 7 Days, #14 TAB 0 Refills Prov: Heladio Stephenson MD 06/11/17 Disposition: 01 DISCHARGE HOME Condition: Stable Davonte Haynes Jun 11, 2017 23:52
[2017-06-12] MEDS ORDERED: KETOROLAC TROMETHAMINE 60 MG/2 ML (IM) VIAL IM ONE
== END 2017-06-12 00:50 | disposition home or self-care (01) ==
LOC: NEPD 20:23
DX: M54.17 Radiculopathy, lumbosacral region (principal); I10 Essential (primary) hypertension; F17.200 Nicotine dependence, unspecified, uncomplicated
CPT/HCPCS: 96372; 99283; J1885

== ENCOUNTER 2017-07-16 11:29 | Emergency (ER) | payer MEDICAID ==
[~2017-07-16] VITALS: Ht 154.9 cm; Wt 91.0 kg
[~2017-07-16 11:29] MED LIST changes: -AZEL0.055 EACH NARE; -DEXE15CA PO; +DEXT15CA5 PO; +DICL75TA PO; -FURO20TA PO; -KETO10 PO; -PRED20 PO
[2017-07-16 11:32] VITALS: BP 126/68; PULSE 106; RESP 20; TEMP 99; O2SAT 98
[2017-07-16] MEDS ORDERED: LISI10TA3 PO (12:53)
[2017-07-16] MEDS ORDERED: FURO20TA PO (12:53)
[2017-07-16] MEDS ORDERED: KETOROLAC TROMETHAMINE 60 MG/2 ML (IM) VIAL IM ONE (13:15)
[2017-07-16] MEDS ORDERED: DICL75TA PO (13:36)
--- NOTE | 2017-07-16 13:36 | PD ---
HPI Chief Complaint: Pain: Acute or Chronic Time Seen by Provider: 13:03 Travel History International Travel<30 days: No Contact w/Intl Traveler<30days: No Traveled to known affect area: No History of Present Illness HPI 49-year-old woman presents emerged from clamp low back pain. History of similar problems. Responded well to Toradol in the past. States pains are worse past couple days. She is appointment pain management coming up. Take diclofenac at home. She is other NSAIDs upset her stomach. No numbness tingling or weakness. No other complaints. History Past Medical History Medical History: Denies Significant Hx Social History Alcohol Use: No Tobacco Use: Yes (1 PPD) Allergies-Medications (Allergen,Severity, Reaction): Coded Allergies: aspirin (Verified Allergy, Severe, ABDOMINAL PAIN, 07/16/17) codeine (Verified Allergy, Severe, Rash, 07/16/17) erythromycin base (Verified Allergy, Severe, N/V, 07/16/17) hydrocodone (Verified Allergy, Severe, Itching, 07/16/17) morphine (Verified Allergy, Severe, 07/16/17) acetaminophen (Verified Allergy, Intermediate, ITCHY SKIN AND VOMIT, ) oxycodone (Verified Allergy, Intermediate, ITCHY SKIN AND VOMIT, 07/16/17) Sulfa (Sulfonamide Antibiotics) (Verified Adverse Reaction, Severe, Fever , 07/16/17) cefixime (Verified Adverse Reaction, Severe, Rash, 07/16/17) Reported Meds & Prescriptions Reported Meds & Active Scripts Active Diclofenac Sodium DR (Diclofenac Sodium) 75 Mg Tabdr 75 Mg PO BID 7 Days Atenolol 25 Mg Tab 25 Mg PO DAILY Reported Lisinopril 10 Mg Tab 10 Mg PO DAILY Furosemide 20 Mg Tab 20 Mg PO DAILY Dextroamphetamine (Dextroamphetamine Sulfate) 15 Mg Cap 15 Mg PO DAILY Review of Systems Except as stated in HPI: all other systems reviewed are Neg Physical Exam Narrative GENERAL: 51-year-old woman, generally well-appearing, no acute distress. SKIN: Warm and dry. CARDIOVASCULAR: Warm and well perfused. RESPIRATORY: Normal rate and effort. MUSCULOSKELETAL: Normal gross appearance the back. Some tenderness to palpation of the lower back. Strength exam in the lower extreme is grossly normal. NEUROLOGICAL: Awake and alert. No gross deficits. Data Data Last Documented VS Vital Signs Date Time Temp Pulse Resp B/P (MAP) Pulse Ox O2 Delivery O2 Flow Rate FiO2 07/16/17 11:32 99.0 106 20 126/68 (87) 98 Orders Orders Ketorolac Inj (Toradol Inj) (07/16/17 13:15) [facility] Medical Decision Making Medical Screen Exam Complete: Yes Emergency Medical Condition: Yes Differential Diagnosis Back pain, radiculopathy, strain or sprain, UTI, AAA, other Narrative Course Medical decision making appears a 52-year-old woman presents emerged department with back pain, similar to previous, requesting shot of Toradol. Looks well. Toradol seems reasonable. Recommend she continue her home instead. Follow-up with pain management as planned. Diagnosis Primary Impression: Chronic low back pain Patient Instructions: General Instructions Additional Instructions: Take medication as prescribed. Follow-up with your doctor as planned Med/Other Pt SpecificInfo: Prescription(s) given Scripts Diclofenac Sodium DR (Diclofenac Sodium DR) 75 Mg Tabdr 75 MG PO BID for 7 Days, #14 TAB 0 Refills Prov: Roel Melara MD 07/16/17 Disposition: 01 DISCHARGE HOME Condition: Stable Roel Melara MD Jul 16, 2017 13:36
== END 2017-07-16 13:55 | disposition home or self-care (01) ==
LOC: NEPD 11:29
DX: M54.5 Low back pain (principal); G89.29 Other chronic pain; Z88.5 Allergy status to narcotic agent; Z88.2 Allergy status to sulfonamides; Z88.1 Allergy status to other antibiotic agents; Z72.0 Tobacco use
CPT/HCPCS: 96372; 99283; J1885